=== PATIENT | male | born 2005 | race African-American/Black ===

== ENCOUNTER 2025-06-01 10:36 | Emergency (ER) | payer MEDICAID ==
[~2025-06-01] VITALS: Ht 175.3 cm; Wt 79.4 kg
[2025-06-01 10:55] VITALS: O2SAT 100
[2025-06-01] MEDS: CEFTRIAXONE SODIUM 500MG VIAL IM ONE (12:44)
[2025-06-01] MEDS: DOXYCYCLINE HYCLATE 100MG CAPSULE PO ONE (12:44)
[2025-06-01] MEDS: LIDOCAINE HCL 1% 20ML VIAL INFIL ONE (13:13)
[2025-06-01] MEDS ORDERED: DOXY-461 MT (13:18)
[2025-06-01 14:04] VITALS: BP 120/71; PULSE 92; RESP 16; TEMP 36.8; O2SAT 100
[2025-06-03 04:08] LABS: HSV TYPE 2 SPECIFIC AB IGG Non Reactive (Non Reactive)
[2025-06-04 04:09] LABS: CHLAMYDIA TRACHOMATIS NAA Negative (Negative); NEISSERIA GONORRHOEAE NAA Negative (Negative)
== END 2025-06-01 14:05 | disposition home or self-care (01) ==
LOC: ER 10:36
DX: A64 Unspecified sexually transmitted disease (principal); H92.01 Otalgia, right ear; Z75.3 Unavailability and inaccessibility of health-care facilities; Z55.6 Problems related to health literacy; Z98.890 Other specified postprocedural states
CPT/HCPCS: 86695; 86696; 87491; 87591; 86592; 36415; 96372; 99283; J0696; Z7610; J2003